=== PATIENT | male | born 1960 | race Caucasian/White ===

== ENCOUNTER 2021-10-08 01:09 | Day surgery (SDC) | payer BC, SELFPAY ==
[2021-09-30 14:08] VITALS: BMI 25.1
[2021-10-08 06:19] VITALS: BP 113/71; PULSE 106; RESP 18; TEMP 35.9; O2SAT 97
[2021-10-08] MEDS: LACTATED RINGERS 1,000 ML 150 ML IV CONT (06:21)
--- NOTE | 2021-10-08 07:24 | PM.HPGS ---
History of Present Illness History of Present Illness Consent: Risks, benefits, and alternatives have been discussed and questions answered. Patient agrees to proceed with procedure. Chief complaint: rectal bleeding Narrative: Ariela Reynolds is a 61 year old male with colon polyps in 2018 Review of Systems Constitutional: Constitutional: Denies headache(s) and Denies weakness Eyes: Eyes: Denies blurry vision ENT: Reports Normal hearing present, Denies headache(s) and Denies neck pain Cardiovascular: Cardiovascular: Denies chest pain and Denies dyspnea Respiratory: Respiratory: Denies dyspnea Gastrointestinal: Gastrointestinal: Reports no additional gastrointestinal complaints Genitourinary: Genitourinary: Denies dysuria Musculoskeletal: Musculoskeletal: Denies neck pain Integumentary/Breasts: Skin/Breast: Denies dry skin Neurologic: Reports Normal hearing present, Denies headache(s) and Denies weakness Psychiatric: Psychiatric: Denies anxiety Endocrine: Endocrine: Denies change in body appearance Hematologic/Lymphatic: Hematologic/Lymphatic: Denies easy bleeding Allergic/Immunologic: Allergic/Immunologic: Denies urticaria [facility] Past Medical History Medical History (Updated 10/08/21 @ 07:24 by Kentrell Small MD) Adenomatous colon polyp Anxiety IBS (irritable bowel syndrome) Open wrist fracture Family History Family History (Updated 08/28/21 @ 13:15 by Violet Weir CMA) Father Bladder cancer Mother Diabetes mellitus Breast cancer Son Depression Grandparent Small intestine cancer Social History Social History (Updated 08/28/21 @ 12:59 by Violet Weir CMA) Smoking status: Never smoker Alcohol intake: current Drinks per week: 8 Living arrangements: with friend(s) Spiritual care concerns: No Meds Home Medications and Allergies Home Medications Medication Instructions Recorded Confirmed Type ascorbate calcium (vitamin C) 500 500 mg PO DAILY 08/28/21 10/08/21 History mg tablet cholecalciferol (vitamin D3) 25 25 mcg PO DAILY 08/28/21 10/08/21 History mcg (1,000 unit) capsule glucosamine HCl 500 mg tablet 500 mg PO DAILY 08/28/21 10/08/21 History [id number]-vxcrov tablet 1 tablet PO DAILY 08/28/21 10/08/21 History Allergies Allergy/AdvReac Type Severity Reaction Status Date / Time dog dander Allergy Unknown Verified 10/08/21 06:18 TOMATOES Allergy Unknown UNKNOWN Uncoded 10/08/21 06:18 Vital Signs Vital Signs - 24 hr 10/08/21 06:19 Temperature 96.6 F L Pulse Rate 106 H Respiratory Rate 18 Blood Pressure 113/71 Pulse Oximetry 97 Exam Const: General: comfortable and no acute distress HENMT: General nose exam: Normal nares present Eyes: General: appearance normal, both eyes and all related structures Neck: Neck: no JVD Resp: Auscultation: clear to auscultation bilaterally Cardio: Rate: regular rate Rhythm: regular rhythm GI: Inspection: non-distended GI Palp: Yes Soft to palpation Skin: General skin exam: normal color Neuro: General: gait normal Speech: normal speech Extrem: General: normal to inspection Psych: Mental Status: mental status grossly normal Assessment and Plan Assessment and plan (1) Adenomatous colon polyp: Code(s): D12.6 - Benign neoplasm of colon, unspecified Status: Acute Assessment and Plan: colonoscopy
--- NOTE | 2021-10-08 07:28 | WPDANESEPPF ---
Anes - Initial Pre Proc Eval Procedure: Operation Date: 10/08/21 07:30 Proposed Procedures p Colonoscopy - Kentrell Small MD Date/Time: 10/08/21 07:28 Surgeon: Kentrell Small MD Pre Op Diagnosis: rectal bleeding Patient Data Age: 61 Gender: M Height: 1.78 m Weight: 79.9 kg Last Vital Signs Temp 96.6 F L 10/08/21 06:19 Pulse 106 H 10/08/21 06:19 Resp 18 10/08/21 06:19 BP 113/71 10/08/21 06:19 Pulse Ox 97 10/08/21 06:19 Allergies Allergy/AdvReac Type Severity Reaction Status Date / Time dog dander Allergy Unknown Verified 10/08/21 06:18 TOMATOES Allergy Unknown UNKNOWN Uncoded 10/08/21 06:18 Home Medications Medication Instructions Recorded Confirmed Type ascorbate calcium (vitamin C) 500 500 mg PO DAILY 08/28/21 10/08/21 History mg tablet cholecalciferol (vitamin D3) 25 25 mcg PO DAILY 08/28/21 10/08/21 History mcg (1,000 unit) capsule glucosamine HCl 500 mg tablet 500 mg PO DAILY 08/28/21 10/08/21 History [id number]-[id number]-hawvea tablet 1 tablet PO DAILY 08/28/21 10/08/21 History Patient hx anesthesia problems: none Family hx anesthesia problems: none Results Review: All pre-operative results and documents have been reviewed as part of the pre-operative evaluation. [facility] Past Medical History Medical History (Updated 10/08/21 @ 07:24 by Kentrell Small MD) Adenomatous colon polyp Anxiety IBS (irritable bowel syndrome) Open wrist fracture Family History Family History (Updated 08/28/21 @ 13:15 by Violet Weir CMA) Father Bladder cancer Mother Diabetes mellitus Breast cancer Son Depression Grandparent Small intestine cancer Social History Social History (Updated 08/28/21 @ 12:59 by Violet Weir CMA) Smoking status: Never smoker Alcohol intake: current Drinks per week: 8 Living arrangements: with friend(s) Spiritual care concerns: No Anes - Eval Final PreProcedure Day of Procedure 10/08/21 07:28 Patient weight: normal Heart: regular rate and rhythm Lungs: clear to auscultation Airway: Mallampati scale class II Neurological: alert and oriented Last oral intake: >/= 8 hours ASA classification: II Emergent: no Anesthetic plan: proceed Anesthesia type and monitoring: general GIVS and standard monitoring Results Review: All pre-operative results and documents have been reviewed as part of the pre-operative evaluation. Informed Consent: The patient's anesthetic plan and its attendant risks and benefits were discussed with the patient/family/POA. Questions were solicited and answers provided to the satisfaction of the patient/family/POA.
[2021-10-08 07:49] VITALS: BP 104/82; PULSE 98; RESP 13; O2SAT 97
[2021-10-08 07:59] VITALS: BP 114/76; PULSE 87; RESP 20; O2SAT 99
[2021-10-08 08:09] VITALS: BP 107/85; PULSE 76; RESP 16; O2SAT 99
== END 2021-10-08 08:20 | disposition home or self-care (01) ==
PROVIDERS: PCP Family Medicine; Visit Provider Internal Medicine Gastroenterology
PROC: 0DJD8ZZ Inspection of Lower Intestinal Tract, Via Natural or Artificial Opening Endoscopic (ICD-10-PCS; CPT 45378; principal; 2021-10-08 07:30)
DX: Z12.11 Encounter for screening for malignant neoplasm of colon (principal); K64.8 Other hemorrhoids; Z86.010 Personal history of colon polyps
CPT/HCPCS: 45378; J2704; J7120

== ENCOUNTER 2021-10-29 10:47 | Outpatient (CLI) | payer BC, SELFPAY ==
--- NOTE | 2021-11-01 17:54 | WPDHOMESLEEP ---
Sleep Study - Home Unattended Date of Study: 10/29/21 Ordering Provider: Sherri Garcia DO Interpreting Provider: Cindy Rowan MD Home Sleep Study Type: Apnea Link Air Height: 1.78 m Weight: 79.379 kg Body Mass Index: 25.1 Neck Circumference (inches): 16 [place]: 4 Reason for Sleep Study Hypersomnia Sleep History Ariela Reynolds is a 61 year old man with Intermittent insomnia, irregular sleep schedule, nightmares and restlessness during sleep. He has difficulty falling asleep and staying asleep. He wakes up throughout the night and has a difficult time waking in the morning. He generally has excessive daytime sleepiness. He rarely awakens from sleep feeling short of breath. He occasionally awakens at night with heartburn, belching or coughing. He frequently snores and occasionally this is loud enough that others complain about it. He occasionally has trouble sleeping with a cold. He does not wake up gasping for breath at night and does not have breathing problems at night witnessed by others. He rarely sweats excessively at night. He frequently notices his heart pounding or beating irregularly at night. He occasionally falls asleep during the day, never falls asleep involuntarily or while driving. He does not have loss of muscle tone with strong emotion. He occasionally has daytime difficulties due to excessive sleepiness. He rarely feels paralyzed on waking or falling asleep. He constantly has vivid dreamlike scenes upon awakening or falling asleep. He rarely feels afraid to go to sleep. He constantly has nightmares, constantly remembers his dreams, and he constantly has racing thoughts. he occasionally feels sad or depressed. He frequently has anxiety. He occasionally has muscular tension and notices parts of his body jerking. He occasionally kicks at night. He rarely has crawling and aching feelings in his legs. He rarely has any kind of leg pain at night. He does not have morning jaw pain. He occasionally grinds his teeth during sleep. He occasionally is bothered by pain during the day but rarely awakened by pain during the night. He frequently wakes up feeling stiff in the morning with sore achy muscles. He occasionally has pain in the neck and spine. He has fatigue, palpitations, stomach problems and depression. He has frequent episodes of insomnia. He has a deviated septum. Normal bedtime is 1:00 a.m. taking 30 minutes but sometimes up to an hour to fall asleep. He typically wakes up 3 times at night. When he wakes he is awake for 2 hours. During this time he reads. He wakes the morning at 8:00 a.m.. The weekends bedtime is later, 2:00 a.m. and his wake time is 9:00 a.m.. He rarely feels refreshed on waking. He plays music in a band and this is part of why his bedtime is late. He also works as a general road supervisor. He does not generally take naps in the afternoon or evening. A short nap is not refreshing. He is usually drowsy after waking for 1 hour longer. He feels better in the evening compared other times of day. Habits: Never smoked tobacco. Caffeine 3-4 servings a day. Alcohol 0-6 servings a day. No recreational drugs. [facility] Past Medical History Medical History (Updated 11/01/21 @ 18:35 by Cindy Rowan MD) Acid reflux Adenomatous colon polyp Anxiety Depression IBS (irritable bowel syndrome) Open wrist fracture Family History Family History (Updated 11/01/21 @ 18:12 by Cindy Rowan MD) Father Bladder cancer Mother Diabetes mellitus Breast cancer Son Depression Grandparent Small intestine cancer Other Narcolepsy Social History Social History (Updated 08/28/21 @ 12:59 by Violet Weir [facility]) Smoking status: Never smoker Alcohol intake: current Drinks per week: 8 Spiritual care concerns: No Medications Home Medications Medication Instructions Recorded Confirmed Type ascorbate calcium (vitamin C) 500 500 mg PO DAILY 08/28/21
[2021-11-01 18:44] VITALS: BMI 25.1
== END 2021-10-30 12:32 | disposition home or self-care (01) ==
LOC: ANHCSM 10:51
PROVIDERS: PCP Family Medicine; Visit Provider Family Medicine
DX: G47.33 Obstructive sleep apnea (adult) (pediatric) (principal)
CPT/HCPCS: 95806

== ENCOUNTER 2023-09-24 09:39 | Outpatient (CLI) | payer BC, SELFPAY ==
[2023-09-24 12:47] LABS: Alanine Aminotransferase 41 U/L (6-50); Albumin Level 3.7 g/dL (3.5-5.1); Alkaline Phosphatase 71 U/L (38-126); Anion Gap 3 mmol/L (8-16); Aspartate Amino Transferase 66 U/L (17-59); Bilirubin,Total 0.5 mg/dL (0.2-1.3); Blood Urea Nitrogen 12 mg/dL (9-20); Calcium 8.7 mg/dL (8.4-10.2); Carbon Dioxide 26 mmol/L (22-30); Chloride 109 mmol/L (98-107); Estimated Glomerular Filt Rate > 60; Glucose 108 mg/dL (65-110); Potassium 4.2 mmol/L (3.4-5.0); Sodium 138 mmol/L (137-145)
== END 2023-09-24 09:40 | disposition home or self-care (01) ==
LOC: ANHGOSHLAB 09:41
PROVIDERS: PCP Internal Medicine; Visit Provider Internal Medicine
DX: R74.8 Abnormal levels of other serum enzymes (principal); E87.5 Hyperkalemia; E03.8 Other specified hypothyroidism
CPT/HCPCS: 36415; 80053; 84443